=== PATIENT | male | born 1980 | race Hispanic/Latino ===

== ENCOUNTER 2023-08-24 06:46 | Emergency (ER) | payer OTHER, SELFPAY ==
[2023-08-24 06:50] VITALS: BP 114/78; PULSE 104; RESP 16; TEMP 37.8; O2SAT 98; BMI 27.3
[2023-08-24] MEDS: IBUPROFEN 400 MG TABLET 800 MG PO (08:03)
--- NOTE | 2023-08-24 08:06 | ED.URI ---
HPI - URI/Sore Throat General Chief Complaint: Upper Respiratory Symptoms Stated Complaint: flu symptoms Time Seen by Provider: 08/24/23 07:14 Source: patient Mode of arrival: Ambulatory History of Present Illness HPI Narrative: Patient here for cough cold congestion fever chills body aches fatigue for the past 24 hours. Sick contacts include his family/daughter. She had the flu. However she has been around people with COVID. Patient states the whole family is sick. Patient has history of asthma. Not requiring any breathing treatments. No wheezing. No shortness of breath. Vital signs noted. Related Data Home Medications Medication Instructions Recorded Confirmed albuterol sulfate 90 mcg/actuation ##0 12/11/11 aerosol inhaler (Ventolin HFA) Allergies Allergy/AdvReac Type Severity Reaction Status Date / Time From [facility] 12 HOUR AdvReac Unknown Uncoded 08/25/17 12:22 Review of Systems Review of Systems Narrative: GENERAL: Positive chills, fatigue, malaise, fever, sweats. HEENT: negative sinus pain, ear pain, sore throat RESPIRATORY: negative dyspnea, positive cough CARDIOVASCULAR: negative chest pain, palpitations GASTROINTESTINAL: negative nausea, vomiting, abdominal pain : negative dysuria, frequency, hematuria MUSCULOSKELETAL: Positive muscle or bony pain SKIN: negative rash, skin lesions NEUROLOGIC: negative weakness, numbness ROS Unobtainable: All systems reviewed & are unremarkable except as noted in HPI and below Exam Narrative Exam Narrative: GENERAL: in no distress, not toxic not dyspneic HEAD: Normocephalic. EYES: Pupils equal round ENT: Mucous membranes moist. NECK: Trachea midline. CARDIOVASCULAR: Regular rate and rhythm RESPIRATORY: Clear to auscultation. Breath sounds equal bilaterally. No wheezes, rales, or rhonchi. Speaking full sentences GASTROINTESTINAL: Abdomen soft, non-tender EXTREMITIES: No gross deformities. BACK: No flank tenderness. NEURO: AOx4. SKIN: Warm and dry PSYCH: Not anxious, is cooperative Initial Vital Signs Initial Vital Signs: Vital Signs Temperature 100.0 F H 08/24/23 06:50 Pulse Rate 104 H 08/24/23 06:50 Respiratory Rate 16 08/24/23 06:50 Blood Pressure 114/78 08/24/23 06:50 Pulse Oximetry 98 08/24/23 06:50 Oxygen Delivery Method Room Air 08/24/23 06:50 Course Orders Ordered: Discontinued Medications Ibuprofen (Ibuprofen 400 Mg Tablet) 800 mg PO NOW ONE Stop: 08/24/23 07:50 Last Admin: 08/24/23 08:03 Dose: 800 mg Documented By: WADE Vital Signs Vital signs: Vital Signs - 8 hr 08/24/23 06:50 Temperature 100.0 F H Pulse Rate 104 H Respiratory Rate 16 Blood Pressure 114/78 Pulse Oximetry 98 Oxygen Delivery Method Room Air [facility] - URI/Sore Throat Lab Data Labs: Lab Results 08/24/23 Range/Units 07:50 Chlamy pneumoniae PCR Not detected (Not Detect) Adenovirus (PCR) Not detected (Not Detect) B.parapertussis DNA PCR Not detected (Not Detecte) Coronavirus OC43 (PCR) Not detected (Not Detect) Coronavirus HKU1 (PCR) Not detected (Not Detect) Coronavirus 229E (PCR) Not detected (Not Detect) SARS-CoV-2 (PCR) Detected H (Not Detecte) Coronavirus NL63 (PCR) Not detected (Not Detect) Human Metapneumovir PCR Not detected (Not Detect) Influenza Type A (PCR) Not detected (Not Detect) Influenza Type B (PCR) Not detected (Not Detect) M. pneumoniae (PCR) Not detected (Not Detect) Parainfluenza 1 (PCR) Not detected (Not Detect) Parainfluenza 2 (PCR) Not detected (Not Detect) Parainfluenza 3 (PCR) Not detected (Not Detect) Parainfluenza 4 (PCR) Not detected (Not Detect) RSV (PCR) Not detected (Not Detect) Entero/Rhino (PCR) Not detected (Not Detect) [facility] Narrative Medical decision making narrative: Patient here for cough cold congestion fever chills body aches fatigue for the past 24 hours. Sick contacts include his family/daughter. She had the flu. However she has been around people with COVID. Patient states the whole family is sick. Patient has history of asthma. Not requiring any breathing treatments. No wheezing. No shortness of breath. Vital signs noted. After history and exam respiratory panel ibuprofen [facility] Medical records reviewed: No recent visit for this complaint Differential considered: Includes but not limited to COVID influenza adenovirus rhino virus RSV bronchitis pneumonia Lab Test results independently reviewed as above. Pertinent findings: Respiratory panel positive COVID Imaging studies independently reviewed: Vital signs exam reassuring no imaging indicated Treatments: Ibuprofen Re-evaluations: 9:00 a.m.. Reviewed results with patient, patient not toxic or dyspneic. Vital signs are reassuring. No prescriptions are indicated. Work note provided. He agrees with treatment plan. He desires discharge home Discussion: Appropriate for discharge home. Patient not toxic or dyspneic. Vital signs are reassuring. No prescriptions are indicated. Work note provided. Reviewed with patient quarantine for 5 days starting today. He agrees with treatment plan and understands no prescriptions are indicated at this time Diagnosis: COVID-19 Discharge Plan Departure Patient Disposition: Home Clinical Impression: COVID-19 Instructions: COVID-19 Activity Restrictions/Additional Instructions: You have tested positive for COVID. You must quarantine for 5 days starting today. Work note has been provided. No prescriptions are indicated. Continue ibuprofen or Tylenol for fever body aches or pain. Return if worse if any questions or concerns or if any trouble breathing. See family doctor in a week for re-evaluation Prescriptions: No Action albuterol sulfate [Ventolin HFA] 90 MCG/PUFF HFA aerosol inhaler Qty: 0 Stand Alone Forms: Patient Portal/API, Work Release Note
[2023-08-24 08:48] LABS: Adenovirus Not Detected (Not Detect); B. parapertussis Not Detected (Not Detecte); Bordetella pertussis Not Detected (Not Detect); Chlamydophila pneumoniae Not Detected (Not Detect); Coronavirus 229E Not Detected (Not Detect); Coronavirus HKU1 Not Detected (Not Detect); Coronavirus NL 63 Not Detected (Not Detect); Coronavirus OC43 Not Detected (Not Detect); Human Metapneumovirus Not Detected (Not Detect); Human Rhinovirus/Enterovirus Not Detected (Not Detect); Influenza A Not Detected (Not Detect); Influenza B Not Detected (Not Detect); Mycoplasma pneumoniae Not Detected (Not Detect); Parainfluenza Virus 1 Not Detected (Not Detect); Parainfluenza Virus 2 Not Detected (Not Detect); Parainfluenza Virus 3 Not Detected (Not Detect); Parainfluenza Virus 4 Not Detected (Not Detect); Respiratory Syncytial Virus Not Detected (Not Detect)
[2023-08-24 08:54] LABS: SARS- CoV-2 Detected (Not Detecte)
== END 2023-08-24 09:05 | disposition home or self-care (01) ==
PROVIDERS: Emergency Provider Emergency Medicine
DX: U07.1 COVID-19 (principal)
CPT/HCPCS: 87633; 99282; 99283